=== PATIENT | male | born 1995 | race African-American/Black ===

== ENCOUNTER 2019-06-08 14:03 | Emergency (ER) | payer OTHER ==
[~2019-06-08] VITALS: Ht 177.8 cm; Wt 83.9 kg
[2019-06-08] MEDS ORDERED: MOBIC7.5 MG PO (15:05)
[2019-06-08 15:10] VITALS: BP 145/82
== END 2019-06-08 15:14 | disposition home or self-care (01) ==
LOC: ER 14:03
DX: S93.401A Sprain of unspecified ligament of right ankle, initial encounter (principal); X58.XXXA Exposure to other specified factors, initial encounter; Y93.61 Activity, american tackle football; Y92.89 Other specified places as the place of occurrence of the external cause; Y99.8 Other external cause status